=== PATIENT | female | born 1935 | race Asian ===

== ENCOUNTER 2017-04-13 09:13 | Emergency (ER) | payer OTHER ==
[~2017-04-13] VITALS: Ht 147.3 cm; Wt 51.3 kg
[~2017-04-13 09:13] MED LIST: ANUHCS PR; ASPIR 8181 MG PO; BACO TOP; CALCIUM LACTATE84 MG PO; CELEBREX200 MG PO; COLACE100 MG PO; COR200 PO; DETROL LA4 MG PO; GOOD SENSE ASPI81 M3 PO; HIBICLENS118 ML TOP; LEVOTHYROXIN0.075 M2 PO; LIPI20 PO; MECLIZINE HYDRO25 M1 PO; METOPROLOL SUCC25 M1 PO; METP PO; NEXIUM40 MG PO; PAROXETINE HCL20 M1 PO; PATANOL5 ML OU; PEPCID AC PO; SYN25 PO; TOP50 PO; XARELTO15 M1 GT; XARELTO15 M1 PO; XARELTO20 M1 PO; ZETIA10 M1 PO
[2017-04-13 10:52] LABS: CALCIUM 8.1 mg/dL (8.5-10.1); CARBON DIOXIDE 24.6 mmol/L (21-32); CHLORIDE SERUM 102 mmol/L (98-107); CREATININE SERUM 0.9 mg/dL (0.6-1.0); GLUCOSE SERUM 128 mg/dL (74-106); POTASSIUM SERUM 3.1 mmol/L (3.5-5.1); SODIUM SERUM 135 mmol/L (136-145)
[2017-04-13 10:55] LABS: BASOPHIL % 0.2 % (0-2); PLATELET COUNT 182 x10^3mcL (130-400)
[2017-04-13 11:01] LABS: ALKALINE PHOSPHATASE 80 U/L (46-116); ALT/SGPT 16 U/L (14-59); AST/SGOT 15 U/L (15-37); BILIRUBIN TOTAL 0.7 mg/dL (0.20-1.00); TOTAL PROTEIN, SERUM 6.7 g/dL (6.4-8.2)
[2017-04-13 11:03] LABS: ALBUMIN 2.9 g/dL (3.4-5.0)
[2017-04-13 11:06] LABS: CK-MB 1.1 ng/mL (0-3.6)
[2017-04-13 12:20] LABS: UA SPECIFIC GRAVITY <=1.005 (1.005-1.035); microscopic required? YES; urine erythrocyte 1+ (NEGATIVE)
[2017-04-13 13:16] VITALS: BP 100/58
== END 2017-04-13 13:16 | disposition home or self-care (01) ==
LOC: ED 09:13
PROVIDERS: Emergency Medicine
DX: I50.9 Heart failure, unspecified (principal); F32.1 Major depressive disorder, single episode, moderate; K21.9 Gastro-esophageal reflux disease without esophagitis; E78.00 Pure hypercholesterolemia, unspecified; M19.90 Unspecified osteoarthritis, unspecified site; Z86.14 Personal history of Methicillin resistant Staphylococcus aureus infection
CPT/HCPCS: 83880; J1940; J7030; J7613; J7644; Q0092

== ENCOUNTER 2018-02-08 12:07 | Emergency (ER) | payer OTHER ==
[~2018-02-08] VITALS: Ht 147.3 cm; Wt 50.3 kg
[2018-02-08 12:16] VITALS: Ht 147.3 cm; Wt 50.3 kg
[2018-02-08] MEDS ORDERED: DIG125 PO (14:45)
[2018-02-08] MEDS ORDERED: PAROXETINE HCL20 M1 PO (14:46)
[2018-02-08] MEDS ORDERED: OYSCO 500500 M1 PO (14:46)
[2018-02-08] MEDS ORDERED: AZELASTINE HYDRO6 ML OU (14:47)
[2018-02-08] MEDS ORDERED: SIMVASTATIN40 M1 PO (14:47)
[2018-02-08] MEDS ORDERED: XOPENEX HF0.045 MG/1 INH (14:48)
[2018-02-08 14:57] LABS: BASOPHIL % 0.1 % (0-2); PLATELET COUNT 231 x10^3mcL (130-400); RED CELL DISTRIBUTION WIDTH 14.5 % (11.5-14.5)
[2018-02-08 15:02] LABS: CALCIUM 8.8 mg/dL (8.5-10.1); CARBON DIOXIDE 27.6 mmol/L (21-32); CHLORIDE SERUM 98 mmol/L (98-107); GLUCOSE SERUM 127 mg/dL (74-106); POTASSIUM SERUM 3.4 mmol/L (3.5-5.1); SODIUM SERUM 138 mmol/L (136-145)
[2018-02-08 15:08] LABS: ALBUMIN 3.6 g/dL (3.4-5.0); ALKALINE PHOSPHATASE 46 U/L (46-116); ALT/SGPT 40 U/L (14-59); AST/SGOT 29 U/L (15-37); BILIRUBIN TOTAL 0.6 mg/dL (0.20-1.00); TOTAL PROTEIN, SERUM 7.3 g/dL (6.4-8.2)
[2018-02-08 18:05] VITALS: BP 132/65
== END 2018-02-08 18:06 | disposition home or self-care (01) ==
LOC: ED 12:07
DX: E86.0 Dehydration (principal); K44.9 Diaphragmatic hernia without obstruction or gangrene; K21.9 Gastro-esophageal reflux disease without esophagitis; E78.00 Pure hypercholesterolemia, unspecified; M19.90 Unspecified osteoarthritis, unspecified site
CPT/HCPCS: 83880; J7030; J7613; Q0092

== ENCOUNTER 2019-02-13 21:14 | Inpatient (IN) | payer OTHER ==
[~2019-02-13] VITALS: Ht 149.9 cm; Wt 51.7 kg
[~2019-02-13 21:14] MED LIST changes: +AZELASTINE HYDRO6 ML OU; +DIG125 PO; +OYSCO 500500 M1 PO; -PEPCID AC PO; +PEPCID AC20 M2 PO; +SIMVASTATIN40 M1 PO; +XOPENEX HF0.045 MG/1 INH
[2019-02-13 21:26] VITALS: Ht 149.9 cm; Wt 51.7 kg
--- NOTE | 2019-02-13 21:35 | NUR ---
PT PRESENTS TO THE ER TODAY FOR DIZZINESS, GENERALIZED WEAKNESS, CHEST PAIN WITH SOB. PT STATES FOR THE LAST 10 DAYS SHE HAS HAD A CHEST PRESSURE 5/10 SUBSTERNAL NON-RADIATING WITH SOB. PT STATES FOR THE PAST 4 DAYS SHE HAS BEEN INCREASINGLY MORE DIZZY AND HER MECLAZINE HAS NOT BEEN HELPING. PT ECG SHOWED THAT SHE WAS SINUS JAMARCUS WITH FREQUENT PAC'S WITH A RATE 32-48. PT HAS NO NEURO DEFFICENTS. A&O X 4. PT LUNGS CLEAR IN ALL V[place]. ABLE TO SPEAK IN FULL SENTENCES. RESPIRATIONS EVEN AND UNLABORED. PT DOES COMPLAIN OF A DRY COUGH AND STATES "FEELS LIKE SOMETHING IS IN MY THROAT". NO OTHER SYMPTOMS OR COMPLAINTS REPORTED. VTAL SIGNS STABLE. NO ACUTE DISTRESS NOTED.
--- NOTE | 2019-02-13 22:23 | NUR ---
PT APPEARS TO BE RESTING COMFORTABLY. PT HR MANTAINING IN THE 50'S AFTER FLUID BOULUS AND NO PAC'S NOTED. PT STATES HER DIZZINESS FEELS BETTER. STILL COMPLAINS OF PRESSURE IN HER CHEST. DR. DUVAL MADE AWARE. VITAL SIGNS STABLE. RESPIRATIONS EVEN AND UNLABORED. NO ACUTE DISTRESS NOTED.
[2019-02-13 22:29] LABS: BASOPHIL % 0.3 % (0-2); PLATELET COUNT 184 x10^3mcL (130-400)
[2019-02-13 22:38] LABS: CALCIUM 8.3 mg/dL (8.5-10.1); CARBON DIOXIDE 27.2 mmol/L (21-32); CHLORIDE SERUM 103 mmol/L (98-107); CREATININE SERUM 1.1 mg/dL (0.6-1.0); GLUCOSE SERUM 106 mg/dL (74-106); POTASSIUM SERUM 4.2 mmol/L (3.5-5.1); SODIUM SERUM 138 mmol/L (136-145)
[2019-02-13 22:42] LABS: RED CELL DISTRIBUTION WIDTH 16.5 % (11.5-14.5)
[2019-02-13 22:46] LABS: ALBUMIN 3.3 g/dL (3.4-5.0); ALKALINE PHOSPHATASE 64 U/L (46-116); ALT/SGPT 40 U/L (14-59); AST/SGOT 30 U/L (15-37); BILIRUBIN TOTAL 0.35 mg/dL (0.20-1.00); MAGNESIUM 2.3 mg/dL (1.8-2.4); TOTAL PROTEIN, SERUM 6.4 g/dL (6.4-8.2)
[2019-02-13 22:56] LABS: T3 TOTAL 0.69 ng/mL
[2019-02-13 23:03] LABS: FREE T4 1.4 ng/dL (0.76-1.46); T4(THYROXINE) 10.6 ug/dL (4.7-13.3)
[2019-02-13] MEDS ORDERED: MECLIZINE HYDRO25 M1 PO (23:20)
[2019-02-13] MEDS ORDERED: XARELTO10 M1 PO (23:20)
[2019-02-13] MEDS ORDERED: SIMVASTATIN40 M1 PO (23:21)
--- NOTE | 2019-02-13 23:28 | NUR ---
PT APPEARS TO BE RESTING COMFORTABLY. VITAL SIGNS STABLE. RESPIRATIONS EVEN AND UNLABORED. NO ACUTE DISTRESS NOTED.
--- NOTE | 2019-02-13 23:36 | NUR ---
REPORT GIVEN TO CHE ON MST FOR CONTINUATION OF CARE.
[2019-02-13 23:45] LABS: PHOSPHOROUS 4.6 mg/dL (2.5-4.9)
[2019-02-13 23:46] LABS: CHOLESTEROL/HDL RATIO 2.1
--- NOTE | 2019-02-14 00:10 | NUR ---
RECEIVED PT VIA [facility] FROM E/D, ACCOMPANIED BY RN, TRANSPORTER, AND PT'S DAUGHTER, JUANA ACUNA. PT A/A/O X 4, CALM, COOPERATIVE, GERMAN-SPEAKING (REQUIRED TRANSLATION VIA DAUGHTER). GENERALIZED WEAKNESS, ABLE TO AMBULATE CGA FROM GUERNEY TO BED WITH SLOW, STEADY GAIT. ON TELE # 23, SB, HR 53, STATES SUBSTERNAL CHEST PRESSURE, NON-RADIATING 5/10, EXACERBATED BY WALKING AND COUGHING, RELIEVED BY RESTING AND PAIN MEDICATIONS, +DIZZINESS. BUL/BLL CLEAR, CHEST RISING EVENLY, R/A, 94%, C/O DRY COUGH, NO ACUTE RESPIRATORY DISTRESS NOTED. ABD SOFT, ROUND, NON-TENDER, NORMOACTIVE BOWEL SOUNDS X 4 QUADS, LAST BM 02/09/19, HARD. IV SITE RAC 20G, CDI. ORIENTED PT AND DAUGHTER TO ROOM, BED CONTROLS, CALL LIGHT SYSTEM. SIDE RAILS UP X 2, BED IN LOW POSITION. WILL ENDORSE TO NEHEMIAH BOLTON.
--- NOTE | 2019-02-14 00:19 | NUR ---
PT TRANSPORTED TO [facility] VIA [facility] ON CM BY JERROD CERNA AND ARTURO SCHROEDER. PT IN NAD
[2019-02-14 00:29] LABS: microscopic required? YES; urine erythrocyte TRACE (NEGATIVE)
[2019-02-14 00:42] VITALS: BP 155/65
--- NOTE | 2019-02-14 03:40 | NUR ---
PT RESTING IN BED WITH EYES CLOSED. FAMILY AT BEDSIDE. NO FACIAL GRIMMACING OR SIGNS OF DISTRESS NOTED. WILL CONTINUE TO MONITOR.
--- NOTE | 2019-02-14 05:58 | NUR ---
PT SLEPT THROUGHOUT THE REMAINDER OF SHIFT. FAMILY AT BEDSIDE. PT DENIES CHEST PAIN OR SHORTNESS OF BREATH AT THIS TIME. SAFETY MEASURES ARE IN PLACE. WILL ENDORSE TO DAY SHIFT RN.
--- NOTE | 2019-02-14 06:05 | NUR ---
PT HR THROUGHOUT SHIFT FLUCTUATED BETWEEN 40-60'S. DOCTOR HALL MADE AWARE. NO NEW ORDERS AT THIS TIME. WILL CONTINUE TO MONITOR.
[2019-02-14 06:12] VITALS: BP 130/59
--- NOTE | 2019-02-14 06:27 | NUR ---
ORTHOSTATIC VITAL SIGNS TAKEN PER DOCTOR ORDER. PT TOLERATED PROCEDURE WELL. PT DENIES PAIN, CHEST PAIN, SHORTNESS OF BREATH, OR DIZZINESS WITH ASSESSMENT. VITALS DOCUMENTED PER PROTOCOL.
--- NOTE | 2019-02-14 07:50 | NUR ---
PATIENT RESTING IN BED, NO ACUTE DISTRESS NOTED. PT DENIES SOB, PATIENT ON ROOM AIR. TELE MONITOR IN PLACE, PATIENT IS SINUS JAMARCUS, DR. PACHECO AWARE. GENERALIZED WEAKNESS NOTED, PATIENT IS AMBULATORY WITH ASSIST. NS IV INFUSING TO RAC AT 70ML/HR, NO S/S OF INFILTRATION, IV SITE PATENT. WILL CONTINUE TO MONITOR FOR CHANGES, CALL LIGHT WITHIN REACH, BED IN LOW POSITION FOR SAFETY PRECAUTION.
[2019-02-14 08:51] LABS: BASOPHIL % 0.5 % (0-2); PLATELET COUNT 190 x10^3mcL (130-400)
[2019-02-14 08:52] LABS: RED CELL DISTRIBUTION WIDTH 16.5 % (11.5-14.5)
[2019-02-14 09:21] LABS: CALCIUM 8.3 mg/dL (8.5-10.1); CARBON DIOXIDE 27.2 mmol/L (21-32); CHLORIDE SERUM 109 mmol/L (98-107); CREATININE SERUM 0.9 mg/dL (0.6-1.0); GLUCOSE SERUM 91 mg/dL (74-106); MAGNESIUM 2.2 mg/dL (1.8-2.4); PHOSPHOROUS 3.7 mg/dL (2.5-4.9); POTASSIUM SERUM 4.1 mmol/L (3.5-5.1); SODIUM SERUM 142 mmol/L (136-145)
[2019-02-14 09:23] VITALS: BP 137/57
[2019-02-14 14:00] VITALS: BP 133/54
--- NOTE | 2019-02-14 16:20 | NUR ---
PATIENT ORTHOSTATICS VITAL SIGNS TAKEN AT TIME. PATIENT DENIES DIZZINESS, BUT C/O A MILD MARTIN, OFFERED PATIENT TYLENOL. PATIENT REFUSED AT THIS TIME. PATIENT C/O CONTISPATION, WILL MEDICATE WITH METAMUCIL. CALL LIGHT WITHIN REACH, BED IN LOW POSITION FOR SAFETY PRECAUTION.
[2019-02-14 17:19] VITALS: BP 147/61
--- NOTE | 2019-02-14 18:32 | NUR ---
PATIENT RESTING IN BED. NO ACUTE DISTRESS NOTED, PATIENT DENIES PAIN AT THIS TIME. NO SOB, ON ROOM AIR. NO ACUTE CHANGES THROUGH OUT SHIFT, PATIENT IS STABLE. FAMILY AT BEDSIDE. CALL LIGHT WITHIN REACH, BED IN LOW POSITION. WILL CONTINUE TO MONITOR AND ENDORSE REPORT TO NIGHT NURSE.
--- NOTE | 2019-02-14 19:30 | NUR ---
RECEIVED PT FROM DAY SHIFT RN. PT AA&O X 4 AND RESTING IN BED. PT ABLE TO FOLLOW COMMANDS. FAMILY AT BEDSIDE. PT DENIES CHEST PAIN AND SHORTNESS OF BREATH ON ROOM AIR. NO USE OF ACCESSORY MUSCLES OR LABORED BREATHING ON ASSESSMENT. THERE IS RAC IV THAT IS CLEAN DRY AND INTACT AT THIS TIME. PT TOLERATING WELL. PT DENIES DIZZINESS AT THIS TIME. TELE #[address] HR:51. PT DENIES ANY PAIN. SAFETY MEASURES IN PLACE. CALL LIGHT IS WITHIN REACH. WILL CONTINUE TO MONITOR.
[2019-02-14 21:32] VITALS: BP 149/66
--- NOTE | 2019-02-15 03:38 | NUR ---
PT RESTING IN BED WITH EYES CLOSED. NO FACIAL GRIMMACING OR SIGNS OF DISTRESS. FAMILY AT BEDSIDE. WILL CONTINUE TO MONITOR.
--- NOTE | 2019-02-15 05:14 | NUR ---
PT SLEPT THROUGHOUT THE SHIFT WITH FAMILY AT THE BEDSIDE. PT DENIED CHEST PAIN OR SHORTNESS OF BREATH. NO USE OF ACCESSORY MUSCLES OR LABORED BREATHING ON ASSESSMENT. SAFETY MEASURES IN PLACE. CALL LIGHT WITHIN REACH. WILL ENDORSE TO DAY SHIFT RN.
[2019-02-15 06:02] VITALS: BP 140/56
[2019-02-15 06:52] LABS: CALCIUM 7.9 mg/dL (8.5-10.1); CARBON DIOXIDE 26.6 mmol/L (21-32); CHLORIDE SERUM 103 mmol/L (98-107); CREATININE SERUM 0.8 mg/dL (0.6-1.0); GLUCOSE SERUM 90 mg/dL (74-106); POTASSIUM SERUM 3.3 mmol/L (3.5-5.1); SODIUM SERUM 137 mmol/L (136-145)
[2019-02-15 07:01] LABS: BASOPHIL % 0.3 % (0-2); PLATELET COUNT 183 x10^3mcL (130-400)
[2019-02-15 07:21] VITALS: BP 137/50
--- NOTE | 2019-02-15 07:30 | NUR ---
ALERT AND ORIENTED. BREATHING FREELY ON RA. DENIES ANY PAIN AT THIS TIME. DTR AT BEDSIDE. HELPFUL WITH INTERPRETATON.BRP WITH ASSIST. NS INFUSING 75 CC HOUR TO RT AC. TELE # 23 SB HR 50'S. ABLE TO REPOSITION SELF IN BED. CALL LIGHT WITHIN REACH.
[2019-02-15 10:51] VITALS: BP 137/50
[2019-02-15 11:01] VITALS: BP 132/59
--- NOTE | 2019-02-15 14:04 | NUR ---
RETURNED TELE # 23 TO TELE STATION. NOW MED SURG PT.
--- NOTE | 2019-02-15 15:00 | NUR ---
PT HAS BEEN DC'D. DTR AT BEDSIDE WANTS OTHER SISTER TO GO OVER DC INSTRUCTIONS WITH PT. GOT UP W/ P.T. USING WALKER.
--- NOTE | 2019-02-15 15:08 | NUR ---
IV SAMUEL. NACHO TODD.
--- NOTE | 2019-02-15 16:25 | NUR ---
DC'D TO HOME. F/U MARV MADE WITH PCP FOR 02/21/19. NO NEW PRESCRIPTIONS GIVEN. ALL DC INSTRUCTIONS REVIEWED WITH AND SIGNED BY PT. DR ARIAS. JUANA ALSO SPOKE WITH ADELSO FROM [employer] AND MADE MARV FOR TOMORROW AT HOME. [phone]. IV DC'D.
--- NOTE | 2019-02-18 07:55 | NUR ---
PHYSICAL THERAPY DAILY NOTES CO-SIGN All documentation done by the Wireless Technician for 02/18/19 has been reviewed. I agree with the documentation. Reviewed/Co-Signed by: Candace Álvarez PT Documentation Done by:DL MENDEZ PTA MARIA ISABEL CO-SIGNED FOR 02/15/19
== END 2019-02-15 16:24 | disposition home or self-care (01) | DRG 73 ==
LOC: ED 21:14 → DU 23:16
PROVIDERS: Emergency Medicine; ADMIT Family Medicine
DX: G90.9 Disorder of the autonomic nervous system, unspecified (principal); N17.0 Acute kidney failure with tubular necrosis; E44.1 Mild protein-calorie malnutrition; F33.9 Major depressive disorder, recurrent, unspecified; R00.1 Bradycardia, unspecified; M94.0 Chondrocostal junction syndrome [Tietze]; T44.7X1A Poisoning by beta-adrenoreceptor antagonists, accidental (unintentional), initial encounter; T46.0X1A Poisoning by cardiac-stimulant glycosides and drugs of similar action, accidental (unintentional), initial encounter; D64.9 Anemia, unspecified; R73.03 Prediabetes; J44.9 Chronic obstructive pulmonary disease, unspecified; I48.2 Chronic atrial fibrillation; K21.9 Gastro-esophageal reflux disease without esophagitis; E03.9 Hypothyroidism, unspecified; H40.9 Unspecified glaucoma; N32.81 Overactive bladder; Y92.018 Other place in single-family (private) house as the place of occurrence of the external cause; Z68.23 Body mass index [BMI] 23.0-23.9, adult; Z79.01 Long term (current) use of anticoagulants
CPT/HCPCS: 83880; 84439; 94150; 97116-GP; J7030; J8597; Q0092

== ENCOUNTER 2019-08-06 16:05 | Inpatient (IN) | payer OTHER ==
[~2019-08-06] VITALS: Ht 152.4 cm; Wt 49.9 kg
[~2019-08-06 16:05] MED LIST changes: +XARELTO10 M1 PO
--- NOTE | 2019-08-06 16:28 | NUR ---
MCE COMPLETED BY DR QUINTANA. DR QUINTANA SPEAKING WITH PT AND PT'S DAUGHTER ABOUT INCIDENT THAT BROUGHT HER TO THE ER. DR QUINTANA ABLE TO SPEAK WITH FAMILY IN PT'S PREFERRED LANGUAGE. PER DAUGHTER, PT HAS BEEN HAVING CHEST PAIN AND FEELING PALPITATIONS X1 WEEK, SINCE PT'S DR TOOK PT OFF ALL HER HEART RELATED MEDICATIONS. TODAY, PT SLIPPED ON SOME WATER, DID NOT SUFFER AN INJURY OR FALL, BUT CAUSED HER TO HAVE INCREASED ANXIETY AND MORE CP AND MAKING HER FEEL SOB. THAT IS WHEN THEY CALLED 911. PT IS AAOX4, RESP E/U, ANSWERING ALL QUESTIONS APPROPRIATELY. REPORTS CHEST PRESSURE AND DISCOMFORT RADIATING TO HER THROAT.
--- NOTE | 2019-08-06 16:31 | NUR ---
ACCORDING TO PAPERWORK FROM ADMISSION IN JANUARY 2019, PT WAS TAKEN OFF HER AMIODARONE, METOPROLOL, AND DIGOXIN BACK IN JANUARY D/T HER BRADYCARDIA. HOWEVER SYMPTOMS OF CHEST DISCOMFORT ONLY BEGAN X1 WEEK AGO.
--- NOTE | 2019-08-06 16:33 | NUR ---
PT BIBA WITH C/C OF CHEST PAIN S/P BECOMING FRUSTRATED. PER MEDIC, PT BECAME FRUSTRATED AT HOME AND GRABBED HER CHEST AND LAID DOWN ON THE FLOOR. DENIES LOC. PT'S FAMILY REPORTS A HX OF SIMILAR EPISODES. PER PT'S DAUGHTER, PT BECOMES EMOTIONAL AND REPORTS CHEST PAIN. PT IS AWAKE, ALERT, DENIES SOB. PT IS LAYING IN GURNEY. CALL LIGHT IN REACH. RESP E/U, NAD NOTED.
--- NOTE | 2019-08-06 16:35 | NUR ---
TRIAGE DONE BY MYSELF.
[2019-08-06 16:56] LABS: BASOPHIL % 0.3 % (0-2); PLATELET COUNT 186 x10^3mcL (130-400); RED CELL DISTRIBUTION WIDTH 16.1 % (11.5-14.5)
--- NOTE | 2019-08-06 17:06 | NUR ---
PT MEDICATED PER MD ORDER. PT'S DAUGHTER VERBALIZED UNDERSTANDING OF MEDICATION PRIOR TO ADMINISTRATION.
[2019-08-06 17:11] LABS: CALCIUM 8.5 mg/dL (8.5-10.1); CARBON DIOXIDE 29.5 mmol/L (21-32); CHLORIDE SERUM 105 mmol/L (98-107); GLUCOSE SERUM 115 mg/dL (74-106); POTASSIUM SERUM 4.1 mmol/L (3.5-5.1); SODIUM SERUM 141 mmol/L (136-145)
[2019-08-06] MEDS ORDERED: NATURE'S BLEND500 M3 PO (17:14)
[2019-08-06 17:15] LABS: ALBUMIN 3.6 g/dL (3.4-5.0); ALKALINE PHOSPHATASE 67 U/L (46-116); ALT/SGPT 13 U/L (14-59); AST/SGOT 15 U/L (15-37); BILIRUBIN TOTAL 0.4 mg/dL (0.20-1.00); TOTAL PROTEIN, SERUM 7.6 g/dL (6.4-8.2)
[2019-08-06 17:24] LABS: T3 TOTAL 0.93 ng/mL
[2019-08-06 17:26] LABS: FREE T4 1.22 ng/dL (0.76-1.46); FREE THYROXINE INDEX 3.4 ug/dL (1.4-4.5); T4(THYROXINE) 9.1 ug/dL (4.7-13.3)
[2019-08-06 18:10] LABS: UA SPECIFIC GRAVITY <=1.005 (1.005-1.035); microscopic required? YES; urine erythrocyte 1+ (NEGATIVE)
--- NOTE | 2019-08-06 19:30 | NUR ---
PT LAYING COMFORTABLY IN GURNEY, AWAKE AND ALERT, RESP E/U, DENIES ANY PAIN IN CHEST OR SOB. FAMILY AT BEDSIDE. PT AND FAMILY VERBALIZED UNDERSTANDING OF PLAN OF CARE FOR ADMISSION.
--- NOTE | 2019-08-06 20:01 | NUR ---
REPORT CALLED TO NEHEMIAH QUINTANA TO ASSUME CARE FOR PT.
--- NOTE | 2019-08-06 20:16 | NUR ---
RECEIVED PT VIA [employer] FROM E/D, ACCOMPANIED BY RN, TRANSPORTER, AND PT'S DAUGHTER, JUANA ACUNA. PT A/A/O X 4, CALM, COOPERATIVE. PT W/ GENERALIZED WEAKNESS, BUT ABLE TO AMBULATE W/ ASSIST, W/ SLOW, STEADY GAIT; USES CANE @ HOME; FALL RISK PROTOCOL IN PLACE. ON TELE # 3, HR 91, NSR, DENIES CHEST PAIN OR DISCOMFORT AT THIS TIME. LUNGS CTAB, CHEST RISING EVENLY, R/A, 96%, DRY COUGH. ABD SOFT, ROUND, NON-TENDER, NORMOACTIVE BOWEL SOUNDS X 4 QUADS, LAST BM 08/05/19, FORMED; EPISODES OF DYSPHAGIA W/ SOLID FOOD; ASPIRATION PRECAUTIONS IN PLACE; POOR PO INTAKE > 3 DAYS. VOIDS FREELY, NO DYSURIA. IV SITE RH 22G, CDI. ORIENTED PT AND DAUGHTER TO ROOM, BED CONTROLS, CALL LIGHT SYSTEM. SIDE RAILS UP X 2, BED IN LOW POSITION. WILL ENDORSE TO NEHEMIAH QUINTANA.
--- NOTE | 2019-08-06 20:19 | NUR ---
PT TRANSPORTED TO [facility] VIA [facility] BY NEHEMIAH OJEDA AND NEHEMIAH ELDER. NAD NOTED. PT VERBALIZED UNDERSTANDING OF CONTINUATION OF CARE.
[2019-08-06 20:57] VITALS: BP 117/79
--- NOTE | 2019-08-06 22:37 | NUR ---
Assisted to the bathroom. Ambulated with assist. Daughter present. Voided. Safety maintained. Offered flu vaccine but pt. and daughter refused due to feeling sick at this time.
--- NOTE | 2019-08-07 04:42 | NUR ---
Afebrile. No significant change in condition noted. Denies pain. Denies n/v. Contact isolation hx of MRSA, proper use of PPE and good hand hygiene observed. Denies chest pain. No neurological changes noted.
[2019-08-07 05:52] VITALS: BP 110/57
[2019-08-07 06:40] LABS: CALCIUM 7.9 mg/dL (8.5-10.1); CARBON DIOXIDE 26.6 mmol/L (21-32); CHLORIDE SERUM 109 mmol/L (98-107); CREATININE SERUM 0.8 mg/dL (0.6-1.0); GLUCOSE SERUM 93 mg/dL (74-106); MAGNESIUM 2.1 mg/dL (1.8-2.4); PHOSPHOROUS 3.7 mg/dL (2.5-4.9); POTASSIUM SERUM 3.3 mmol/L (3.5-5.1); SODIUM SERUM 143 mmol/L (136-145)
--- NOTE | 2019-08-07 07:20 | NUR ---
RECEIVED PT FROM REGION MANAGER RN. Baldemar/JASON. SON AT BEDSIDE, TRANSLATING FOR PT. TELE#3. PT STATES SHE HAS SOME PAIN THAT IS ON AND OFF TO MIDDLE LEFT CHEST ACHING. PT STATES PAIN IS STRONG UPON PALP. RESPIRATIONS EQUAL AND UNLABORED ON RA. DENIES SOB. PT DENIES ANY N/V. PT DENIES ANY ABDOMINAL PAIN. AMBULATES WITH CANE AT HOME. IV TO RH SALINE LOCKED. NO REDNESS OR SWELLING NOTED. WILL CONTINUE TO MONITOR. CALL LIGHT IN REACH. BED IN LOWEST POSITION.
--- NOTE | 2019-08-07 07:20 | NUR ---
RECEIVED PT FROM BRASS MOLDER RN. Mcdermott/JASON
--- NOTE | 2019-08-07 07:40 | NUR ---
RECEIVED PT FROM HEALTH EDUCATOR RN. A/OX
[2019-08-07 08:45] LABS: BASOPHIL % 0.4 % (0-2); PLATELET COUNT 167 x10^3mcL (130-400)
[2019-08-07 09:18] VITALS: BP 112/68
--- NOTE | 2019-08-07 10:00 | NUR ---
PT SITTING UP AT BEDSIDE. NO ACUTE RESP DISTRESS NOTED ON RA. DAUGHTER AT BEDSIDE. GIVEN PO MEDS, ONE AT A TIME. TOLERATED WELL. PT STATES SHE HAS SOME PAIN TO LEFT MIDDLE CHEST, PT STATES PAIN IS ON AND OFF. DR. THOMAS AT BEDSIDE SPEAKING WITH PT AND DAUGHTER. IV TO RH PATENT AND INFUSING. NO REDNESS OR SWELLING NOTED. WILL CONTINUE TO MONITOR. CALL LIGHT IN REACH. BED IN LOWET POSITION.
--- NOTE | 2019-08-07 12:45 | NUR ---
PT SITTING UP AT BEDSIDE. FAMILY AT BEDSIDE. RECEIVED CALL FROM SCRAP BUNCH MAKER PT HEART RATE IS 160 BUT GOES BACK DOWN BELOW 140. DR. THOMAS MADE AWARE, PER DR. THOMAS CONTINUE TO MONITOR. PT DENIES ANY PALPITATION OR CHEST PAIN. GIVEN INFLUENZA VACCINE TO LEFT DELTOID. PT TOLERATED WELL. FAMILY AT BEDSIDE. WILL CONTINUE TO MONITOR. CALL LIGHT IN REACH. BED IN LOWEST POSITION.
[2019-08-07 13:15] VITALS: BP 119/87
--- NOTE | 2019-08-07 14:50 | NUR ---
CALLED AND SPOKE TO AND VERIFIED WITH HIM IF HE WANT DILTIAZEM FIRST DOSE NOW AND TO KEEP 1800 NEXT DOSE, SAID OKAY. MARY CERNA ASSIGNED TO THIS PT MADE AWARE OF ABOVE.
[2019-08-07 16:55] VITALS: BP 121/54
--- NOTE | 2019-08-07 18:12 | NUR ---
PT WAS SEEN FOR DYSPHAGIA. PT HAD MILD DIFFICULTY WITH MASTICATION SKILLS FOR MS DIET. PT WAS ABLE TO SAFELY SWALLOW PUREE DIET WITH THIN LIQUID. RECOMMENDATION PUREE DIET WITH THIN LIQUID SMALL BITES AND SIPS ONLY.
--- NOTE | 2019-08-07 18:28 | NUR ---
SPOKE WITH DR. POON NOTIFIED OF SPEECH THERAPIST RECOMMENDATIONS FOR PUREE DIET WITH THIN LIQUIDS. ALSO ASKED FOR REPLACEMENT OF POTASSIUM OF 3.3. PER DR. POON WILL PLACE ORDER.
--- NOTE | 2019-08-07 19:30 | NUR ---
RECEIVED REPORT FROM AM NURSE, PT LAYING DOWN IN BED WITH FAMILY AT BEDSIDE. PT AAOX4, ABLE TO MAKE NEEDS KNOWN. PT ON TELE#3 READING A-FIB, HR 94. DENIES CP/PRESSURE AT THIS TIME. PALPABLE PULSES TO ALL EXTREMETIES, NO EDEMA NOTED. LUNG SOUNDS CTA. BREATHING EVEN AND UNLABORED ON RA. NO ACUTE DISTRESS NOTED. ABD SOFT AND NONDISTENDED, ACTIVE BS X4 QUAD. DENIES N/V/D. VOIDS FREELY, BRP. AMBULATORY WITH ASSIST. IV TO RH FLUSHING WELL. SITE WNL. BED AT LOWEST SETTING. SIDE RAILS X4 QUAD. CALL LIGHT WITHING REACH. WILL CONTINUE TO MONITOR.
[2019-08-07 20:52] VITALS: BP 109/55
--- NOTE | 2019-08-08 | NUR ---
PT AWAKE, SITTING DOWN IN BED WITH DAUGHTER AT BEDSIDE. BREATHING EVEN AND UNLABORED ON RA. NO ACUTE DISTRESS NOTED. BED AT LOWEST SETTING. SIDE RAILS X2 UP. CALL LIGHT WITHING REACH. WILL CONTINUE TO MONITOR.
[2019-08-08 05:44] VITALS: BP 110/59
--- NOTE | 2019-08-08 06:11 | NUR ---
PT SLEPT AT INTERVALS THROUGHOUT THE NIGHT, BREATHING EVEN AND UNLABORED ON RA. NO SIGNIFICANT CHANGES DURING SHIFT. ALL NEEDS ASSESSED AND ATTENDED TO. NO ACUTE DISTRESS NOTED. BED AT LOWEST SETTING. SIDE RAILS X2 UP. CALL LIGHT WITHING REACH. WILL ENDORSE CARE TO AM NURSE.
[2019-08-08 06:27] LABS: BASOPHIL % 0.2 % (0-2); PLATELET COUNT 188 x10^3mcL (130-400)
[2019-08-08 06:33] LABS: CALCIUM 7.7 mg/dL (8.5-10.1); CARBON DIOXIDE 25.1 mmol/L (21-32); CHLORIDE SERUM 106 mmol/L (98-107); CREATININE SERUM 0.9 mg/dL (0.6-1.0); GLUCOSE SERUM 95 mg/dL (74-106); MAGNESIUM 2.1 mg/dL (1.8-2.4); PHOSPHOROUS 4.2 mg/dL (2.5-4.9); POTASSIUM SERUM 3.6 mmol/L (3.5-5.1); SODIUM SERUM 140 mmol/L (136-145)
[2019-08-08 06:35] LABS: RED CELL DISTRIBUTION WIDTH 16.1 % (11.5-14.5)
--- NOTE | 2019-08-08 07:10 | NUR ---
RECEIVED PT FROM REPTILE KEEPER RN. Baldemar/JASON. TELE#3. DENIES CHEST PAIN/PRESSURE. PT DENIES ANY CHEST PALPITATIONS AT THIS TIME. RESPIRATIONS EQUAL AND UNLABORED ON RA. DENIES SOB. PT DENIES ANY PAIN AT THIS TIME. PT C/O CONSTIPATION, PT STATES AFTER RECEIVING COLACE I HAVE WENT TO THE BATHROOM AND FEEL BETTER. DAUGHTER AT BEDSIDE. IV TO RH SALINE LOCKED. NO REDNESS OR SWELLING NOTED. WILL CONTINUE TO MONITOR. CALL LIGHT IN REACH. BED IN LOWEST POSITION.
[2019-08-08 08:49] VITALS: BP 93/57
--- NOTE | 2019-08-08 09:40 | NUR ---
PT SITTING UP AT BEDSIDE. NO ACUTE RESP DISTRESS NOTED ON RA. PT GIVEN PO MEDS. TOLERATED WELL. ALL MEDS EXPLAINED AND TRANSLATED TO PT BY NAKUL CERNA. IV TO RH FLUSHED WELL. IV ANITBIOTICS INFUSING ORDERED. NO REDNESS OR SWELLING NOTED. APPLIED LIDERM PATCH TO LEFT MIDDLE CHEST. WILL CONTINUE TO MONITOR. CALL LIGHT IN REACH. BED IN LOWEST POSITION.
--- NOTE | 2019-08-08 12:23 | NUR ---
PT IN BED RESTING. NO ACUTE RESP DISTRESS NOTED ON RA. PT DENIES ANY PAIN AT THIS TIME. GIVEN PO MEDS. TOLERATED WELL. LIDODERM PATCH IN PLACE TO LEFT MIDDLE CHEST. IV SALINE LOCKED TO RH. NO REDNESS OR SWELLING NOTED. WILL CONTINUE TO MONITOR. CALL LIGHT IN REACH. BED IN LOWEST POSITION.
[2019-08-08 12:48] VITALS: BP 113/69
--- NOTE | 2019-08-08 13:46 | NUR ---
Initial Nutrition Assessment: 218T/B LUCY ACUNA IA HR Dx: A fib w/ rapid ventricular response PMHx: COPD, atrial fibrillation on anticoagulation, overactive bladder, glaucoma, GERD, hypothyroidism, chronic vertigo, depression, HLD, and HTN PSHx: hemorrhiodectomy Labs: BUN 24H, CA 7.7L Meds: Antivert, Cardizem, Colace, Synthroid, Zofran Diet: Puree PO intake since admission: (08/07) dinner 40%, lunch 90%, breakfast 80% Ht: 152.4 cm (60") Wt: 49.8 kg (109#) BMI: 21.5 kg/m2 Bed scale: 49.7 kg IBW: 100# (45 kg) %IBW: 109 UBW: unbale to access Age: 84/F Food Allergies: NKFA Skin: intact Soto: 18 Edema: none GI: Last BM: 08/08 Trigger: poor PO >3d Per H&P, Pt is a 84 years old female with PMH of COPD, atrial fibrillation on anticoagulation, overactive bladder, glaucoma, GERD, hypothyroidism, chronic vertigo, depression, HLD, and HTN who brought to ED due to chest pain RD Note (08/08): Patient was sleeping. Per RN Sussy, patient ate >75% breakfast this morning and does not have any N/V/D/C at this time. 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 if unable to tolerate necessary rate-controlling agents due to bradycardia Problem with: N/V/D/C: none per RN Problems with: Chewing: Swallowing: none per RN Current appetite: good per RN Recent wt change: unable to access %wt change: n/a Vitamin/Supplement use: unable to access Special diet at home: unable to access Physical activity: unable to access Nutrition education given: not possible at this time as patient is sleeping Food-drug interactions: Colace: high fiber w/ 5755-4748 ml fluid/day Education given: n/a Estimated Nutritional Needs Based on current body weight (49.8 kg) Energy: 8034-6745 kcal/day (25-30 kcal/kg for geriatric maintenance) Protein: 50-59 g/day (1.0-1.2 g/kg for geriatric maintenance) Fluid: 4612-3592 mL/day (1 mL/kcal) Nutrition Diagnosis: 1. Increased nutrient needs related to increased metabolic demands as evidenced by estimated calorie and protein needs. Intervention 1. Recommend continuing puree diet Monitor/Evaluate Goal: PO intake at least 75% of estimated needs Monitor: PO intake, Labs, GI function F/U in 7 days as low risk 08/15
--- NOTE | 2019-08-08 13:46 | NUR ---
1. Recommend continuing puree diet
[2019-08-08 17:10] VITALS: BP 111/62
--- NOTE | 2019-08-08 17:28 | NUR ---
PT SITTING UP IN BED. NO ACUTE RESP DISTRESS NOTED ON RA. PT DENIES ANY PAIN AT THIS TIME. GIVEN PO MEDS. TOLERATED WELL. WILL CONTINUE TO MONITOR. CALL LIGHT IN REACH. BED IN LOWEST POSITION.
--- NOTE | 2019-08-08 19:20 | NUR ---
RECEIVED REPORT FROM AM NURSE, PT LAYING DOWN IN BED WITH FAMILY AT BEDSIDE. PT AAOX4, ABLE TO MAKE NEEDS KNOWN. SPEECH CLEAR, NO FACIAL DROOP NOTED. PT ON TELE#3 READING A-FIB, HR 87. DENIES CP/PRESSURE AT THIS TIME. PALPABLE PULSES TO ALL EXTREMETIES, NO EDEMA NOTED. LUNG SOUNDS CTA. BREATHING EVEN AND UNLABORED ON RA. NO ACUTE DISTRESS NOTED. ABD SOFT AND NONDISTENDED, ACTIVE BS X4 QUAD. DENIES N/V/D. LAST BM 08/07/19 VOIDS FREELY, BRP. AMBULATORY WITH ASSIST. IV TO LFA FLUSHING WELL. SITE WNL. BED AT LOWEST SETTING. SIDE RAILS X4 QUAD. CALL LIGHT WITHING REACH. WILL CONTINUE TO MONITOR.
[2019-08-08 19:45] VITALS: BP 102/60
--- NOTE | 2019-08-08 21:55 | NUR ---
ASSISTED PT TO WALK ON HALLWAY PER DR ORDER, PT TOLERATED WELL. HIGHEST HR 112. NO ACUTE DISTRESS NOTED. ASSISTED PT BACK TO BED. WILL CONTINUE TO MONITOR.
--- NOTE | 2019-08-09 00:06 | NUR ---
PT LAYING DOWN IN BED WITH EYES CLOSED, BREATHING EVEN AND UNLABORED ON RA. NO ACUTE DISTRESS NOTED. BED AT LOWEST SETTING. SIDE RAILS X2 UP. CALL LIGHT WITHING REACH. WILL CONTINUE TO MONITOR.
[2019-08-09 04:52] VITALS: BP 103/55
--- NOTE | 2019-08-09 05:19 | NUR ---
PT SLEPT AT INTERVALS THROUGHOUT THE NIGHT, BREATHING EVEN AND UNLABORED ON RA. NO ACUTE DISTRESS NOTED. NO SIGNIFICANT CHANGES DURING SHIF. ALL NEEDS ASSESSED AND ATTENDED TO. BED AT LOWEST SETTING. SIDE RAILS X2 UP. CALL LIGHT WITHING REACH. WILL ENDORSE CARE TO AM NURSE.
[2019-08-09 06:21] LABS: BASOPHIL % 0.3 % (0-2); PLATELET COUNT 169 x10^3mcL (130-400)
[2019-08-09 06:23] LABS: CALCIUM 7.7 mg/dL (8.5-10.1); CARBON DIOXIDE 27.5 mmol/L (21-32); CHLORIDE SERUM 102 mmol/L (98-107); CREATININE SERUM 0.7 mg/dL (0.6-1.0); GLUCOSE SERUM 91 mg/dL (74-106); PHOSPHOROUS 3.4 mg/dL (2.5-4.9); POTASSIUM SERUM 3.4 mmol/L (3.5-5.1); SODIUM SERUM 135 mmol/L (136-145)
[2019-08-09 07:41] LABS: RED CELL DISTRIBUTION WIDTH 15.4 % (11.5-14.5)
--- NOTE | 2019-08-09 08:00 | NUR ---
SHIFT ASSESSMENT DONE. PATIENT A/A/OX3. INDONESIAN SPEAKING. TELE#3; A FIB; HR 70'S AND 80'S. IRREGULAR. DENIED CHEST PAIN. NO RESP DISTRESS ON RA. GENERAL WEAKNESS. NEED ASSIST FOR BRP. SLOW GAIT. IVHL'D TO LFA. SITE CLEAN. FINISHED 75% OF PUREED DIET BREAKFST, TOLERTED WELL. DENIED PAIN NOW. DAUGHTER AT BED SIDE. CALL LIGHT IN REACH.
[2019-08-09 08:42] VITALS: BP 112/70
[2019-08-09 11:46] VITALS: BP 102/55
[2019-08-09] MEDS ORDERED: CARCD120 PO (11:47)
[2019-08-09] MEDS ORDERED: LIDODERM51 TOP (11:55)
[2019-08-09] MEDS ORDERED: CEPACOL SORE TH1 LO4 MM (11:57)
[2019-08-09] MEDS ORDERED: LEVOFLOXACIN500 M1 PO (12:09)
[2019-08-09 12:11] VITALS: BP 102/55
--- NOTE | 2019-08-09 14:00 | NUR ---
CONDITION STABLE. NO SOB. NO CHEST PAIN. D/C TO HOME PER ORDER. INSTRUCTION GIVEN. IV D/C'D. ACCOMPANIED WITH DAUGHTER.
[2019-08-12 14:08] VITALS: Ht 152.4 cm; Wt 49.9 kg
== END 2019-08-09 14:10 | disposition home or self-care (01) | DRG 206 ==
LOC: ED 16:05 → DU 18:17
PROVIDERS: Emergency Medicine; ADMIT Family Medicine
DX: M94.0 Chondrocostal junction syndrome [Tietze] (principal); N39.0 Urinary tract infection, site not specified; I48.92 Unspecified atrial flutter; I48.0 Paroxysmal atrial fibrillation; R55 Syncope and collapse; I10 Essential (primary) hypertension; J44.9 Chronic obstructive pulmonary disease, unspecified; F32.9 Major depressive disorder, single episode, unspecified; E03.9 Hypothyroidism, unspecified; E78.5 Hyperlipidemia, unspecified; Z68.21 Body mass index [BMI] 21.0-21.9, adult
CPT/HCPCS: 83880; 84439; 90658; 92526-GN; 92610-GN; C9113; G0378; J0696; J1940; J3490; J7030; J8597; Q0092